=== PATIENT | male | born 1970 | race Caucasian/White ===

== ENCOUNTER → 2016-12-08 | Outpatient (CLI) | payer BC ==
[~2016-12-08] MED LIST: BLOOD PRESSURE; GLUCOPHAGE500 MG PO; MOTRIN800 MG PO; TRICOR54 MG PO
[2016-12-08 12:02] LABS: BASO % 0.3 % (0.0-1.0); EOS # 0.1 10*3/uL (0.0-0.4); EOS % 0.9 % (1.0-4.0); HEMOGLOBIN 17.7 g/dl (14.0-18.0); LYMPH # 1.4 10*3/uL (1.3-4.4); LYMPH % 21.7 % (27.0-41.0); MEAN CELL VOLUME 89.8 fl (80.0-94.0); MEAN CORPUSCULAR HGB 31.8 pg (27.0-31.0); MEAN CORPUSCULAR HGB CONC 35.4 g/dl (33.0-37.0); MEAN PLATELET VOLUME 11.3 fl (9.6-12.3); MONO # 0.6 10*3/uL (0.1-1.0); MONO % 8.8 % (3.0-9.0); NEUT # 4.4 10*3/uL (2.3-7.9); PLATELET COUNT AUTOMATED 152 10*3/uL (130-400); RED BLOOD COUNT 5.57 10*6/uL (4.50-5.90); RED CELL DISTRI WIDTH 12.6 % (0-14.5); WHITE BLOOD COUNT 6.5 10*3/uL (4.8-10.8)
[2016-12-08 12:21] LABS: IRON 79 ug/dL (65-175); IRON SATURATION 21 %; UIBC 289 ug/dL (110-410)
[2016-12-09 19:05] LABS: LEUKOCYTE ALK PHOSPHATASE 84 (25-130)
== END | disposition home or self-care (01) ==
LOC: LAB 11:19
PROVIDERS: Internal Medicine Hematology & Oncology
DX: D75.1 Secondary polycythemia (principal)

== ENCOUNTER → 2017-05-18 | Outpatient (CLI) | payer BC ==
[2017-05-18 05:58] LABS: BASO % 0.3 % (0.0-1.0); EOS # 0.1 10*3/uL (0.0-0.4); EOS % 1.2 % (1.0-4.0); HEMATOCRIT 45.1 % (42.0-52.0); HEMOGLOBIN 15.9 g/dl (14.0-18.0); LYMPH # 1.8 10*3/uL (1.3-4.4); LYMPH % 28.1 % (27.0-41.0); MEAN CELL VOLUME 90.4 fl (80.0-94.0); MEAN CORPUSCULAR HGB 31.9 pg (27.0-31.0); MEAN CORPUSCULAR HGB CONC 35.3 g/dl (33.0-37.0); MEAN PLATELET VOLUME 11.5 fl (9.6-12.3); MONO # 0.7 10*3/uL (0.1-1.0); MONO % 10.1 % (3.0-9.0); NEUT # 3.8 10*3/uL (2.3-7.9); PLATELET COUNT AUTOMATED 141 10*3/uL (130-400); RED BLOOD COUNT 4.99 10*6/uL (4.50-5.90); RED CELL DISTRI WIDTH 12.7 % (0-14.5); WHITE BLOOD COUNT 6.4 10*3/uL (4.8-10.8)
[2017-05-18 06:07] LABS: BILIRUBIN NEGATIVE (NEGATIVE); BLOOD NEGATIVE (NEGATIVE); CLARITY CLEAR (CLEAR); COLOR YELLOW (YELLOW); GLUCOSE 3+ (NEGATIVE); KETONE NEGATIVE (NEGATIVE); LEUKO ESTERASE NEGATIVE (NEGATIVE); NITRITE NEGATIVE (NEGATIVE); PH 5.5 (5.0-9.0); SPECIFIC GRAVITY 1.025 (1.005-1.030); UROBILINOGEN 0.2 E.U./dl (0.2-1.0)
[2017-05-18 06:33] LABS: ALBUMIN 3.5 gm/dl (3.1-4.5); BUN 13 mg/dl (7-24); CHLORIDE 103 mmol/L (98-107); CHOLESTEROL 204 mg/dL (<200); GAMMA GLUTAMYL TRANSPEPTIDASE 58 U/L (15-85); POTASSIUM 3.5 mmol/L (3.5-5.1); SGOT/AST 23 IU/L (3-35); SODIUM 136 mmol/L (136-145); TRIGLYCERIDES 500 mg/dl (<150)
[2017-05-18 06:40] LABS: ALKALINE PHOSPHATASE 113 U/L (45-117); CPK 126 U/L (39-308); CREATININE 0.94 mg/dL (0.70-1.30); HDL CHOLESTEROL 33 mg/dl (40-60); SGPT/ALT 46 U/L (12-78); TOTAL PROTEIN 6.9 gm/dL (6.4-8.2)
[2017-05-18 11:04] LABS: FERRITIN 376.8 ng/mL (22.0-322.0); VITAMIN D, 25-HYDROXY 13.4 ng/mL (30-100)
== END | disposition home or self-care (01) ==
LOC: LAB 05:06
PROVIDERS: Family Medicine
DX: R79.89 Other specified abnormal findings of blood chemistry (principal); R53.83 Other fatigue; E55.9 Vitamin D deficiency, unspecified

== ENCOUNTER → 2021-01-31 | Outpatient (CLI) | payer OTHER ==
[2021-01-31 07:39] LABS: BILIRUBIN Negative (Negative); BLOOD Negative (Negative); CLARITY Clear (Clear); COLOR Yellow (Yellow); GLUCOSE 3+ (Negative); KETONE Negative (Negative); LEUKO ESTERASE Negative (Negative); NITRITE Negative (Negative); SPECIFIC GRAVITY >= 1.030 (1.001-1.030)
[2021-01-31 07:40] LABS: BASO % 0.2 % (0.0-1.0); EOS # 0.1 10*3/uL (0.0-0.4); EOS % 1.2 % (1.0-4.0); HEMATOCRIT 43.2 % (42.0-52.0); LYMPH # 1.2 10*3/uL (1.3-4.4); LYMPH % 23.5 % (27.0-41.0); MEAN CORPUSCULAR HGB 31.5 pg (27.0-31.0); MEAN PLATELET VOLUME 10.5 fl (9.6-12.3); MONO # 0.6 10*3/uL (0.1-1.0); MONO % 11.4 % (3.0-9.0); NEUT # 3.1 10*3/uL (2.3-7.9); NEUT % 63.3 % (47.0-73.0); PLATELET COUNT AUTOMATED 191 10*3/uL (130-400); RED CELL DISTRI WIDTH 12.4 % (0-14.5); RETICULOCYTE % 2.46 % (0.50-2.50); WHITE BLOOD COUNT 4.9 10*3/uL (4.8-10.8)
[2021-01-31 08:10] LABS: ALBUMIN 3.7 gm/dl (3.1-4.5); BUN 14 mg/dl (7-24); CHLORIDE 104 mmol/L (98-107); CHOLESTEROL 159 mg/dL (<200); CREATININE 0.91 mg/dL (0.70-1.30); GAMMA GLUTAMYL TRANSPEPTIDASE 23 U/L (15-85); IRON 93 ug/dL (65-175); LDL CHOLESTEROL 97 mg/dL (9-159); POTASSIUM 3.8 mmol/L (3.5-5.1); SGOT/AST 16 IU/L (3-35); SGPT/ALT 42 U/L (12-78); SODIUM 134 mmol/L (136-145); TOTAL IRON BINDING CAPACITY 321 ug/dl (250-450); TRIGLYCERIDES 150 mg/dl (<150)
[2021-01-31 08:17] LABS: ALKALINE PHOSPHATASE 121 U/L (45-117); CPK 165 U/L (39-308); THYROID STIM HORMONE (HS) 0.839 uIU/ml (0.358-4.75); TOTAL PROTEIN 7.3 gm/dL (6.4-8.2)
[2021-01-31 08:40] LABS: FERRITIN 456.6 ng/mL (22.0-322.0); VITAMIN D, 25-HYDROXY 22.2 ng/mL (30-100)
[2021-01-31 09:58] LABS: BACTERIA TRACE; MUCOUS 2+
== END | disposition home or self-care (01) ==
LOC: LAB 07:07
PROVIDERS: ATTEND Family Medicine
DX: E10.9 Type 1 diabetes mellitus without complications (principal); E78.5 Hyperlipidemia, unspecified; E55.9 Vitamin D deficiency, unspecified; R53.83 Other fatigue; R79.89 Other specified abnormal findings of blood chemistry

== ENCOUNTER 2021-02-11 11:03 | Emergency (ER) | payer OTHER ==
[~2021-02-11] VITALS: Ht 172.7 cm; Wt 87.5 kg
[2021-02-11 11:07] VITALS: BP 145/93
== END 2021-02-11 13:51 | disposition home or self-care (01) ==
LOC: ED 11:03
DX: S89.91XA Unspecified injury of right lower leg, initial encounter (principal); Z90.49 Acquired absence of other specified parts of digestive tract; Z79.899 Other long term (current) drug therapy; X50.1XXA Overexertion from prolonged static or awkward postures, initial encounter; Y93.01 Activity, walking, marching and hiking; Y92.238 Other place in hospital as the place of occurrence of the external cause; Y99.9 Unspecified external cause status

== ENCOUNTER → 2021-02-28 | Outpatient (CLI) | payer OTHER | END | disposition home or self-care (01) | LOC: MRI 07:38 | PROVIDERS: ATTEND Family Medicine | DX: S83.241A Other tear of medial meniscus, current injury, right knee, initial encounter (principal); M25.461 Effusion, right knee; M22.2X1 Patellofemoral disorders, right knee; X58.XXXA Exposure to other specified factors, initial encounter; Y93.89 Activity, other specified; Y92.89 Other specified places as the place of occurrence of the external cause; Y99.8 Other external cause status ==

== ENCOUNTER 2021-07-08 11:20 | Emergency (ER) | payer OTHER ==
[~2021-07-08] VITALS: Wt 83.5 kg
[2021-07-08 11:31] VITALS: BP 165/90
[2021-07-08 11:42] LABS: BASO % 0.2 % (0.0-1.0); EOS % 0.1 % (1.0-4.0); HEMATOCRIT 48.7 % (42.0-52.0); LYMPH % 9.8 % (27.0-41.0); MEAN CELL VOLUME 89.5 fl (80.0-94.0); MEAN CORPUSCULAR HGB 31.6 pg (27.0-31.0); MEAN CORPUSCULAR HGB CONC 35.3 g/dl (33.0-37.0); MEAN PLATELET VOLUME 10.8 fl (9.6-12.3); MONO # 0.5 10*3/uL (0.1-1.0); MONO % 4.9 % (3.0-9.0); NEUT # 8.9 10*3/uL (2.3-7.9); NEUT % 84.6 % (47.0-73.0); PLATELET COUNT AUTOMATED 225 10*3/uL (130-400); RED BLOOD COUNT 5.44 10*6/uL (4.50-5.90); RED CELL DISTRI WIDTH 11.9 % (0-14.5); WHITE BLOOD COUNT 10.6 10*3/uL (4.8-10.8)
[2021-07-08 11:53] LABS: ACT PARTIAL THROMBO TIME 23.1 SECONDS (20.0-32.1); INTERNATIONAL NORM RATIO 1.1 (2.0-3.5)
[2021-07-08 11:54] LABS: SODIUM 131 mmol/L (136-145)
[2021-07-08 12:10] LABS: ALBUMIN 4.4 gm/dl (3.1-4.5); ALKALINE PHOSPHATASE 88 U/L (45-117); BUN 19 mg/dl (7-24); CHLORIDE 97 mmol/L (98-107); CREATININE 1.17 mg/dL (0.70-1.30); POTASSIUM 4.2 mmol/L (3.5-5.1); SGOT/AST 20 IU/L (3-35); SGPT/ALT 31 U/L (12-78); TOTAL PROTEIN 8.2 gm/dL (6.4-8.2)
[2021-07-08 12:12] LABS: TROPONIN I < 0.015 ng/ml (<0.045)
[2021-07-08] MEDS ORDERED: ZOFRAN4 MG PO (17:39)
[2021-07-08] MEDS ORDERED: VIBRAMYCIN HYC100 MG PO (17:41)
== END 2021-07-08 19:24 | disposition home or self-care (01) ==
LOC: ED 11:20
PROVIDERS: Internal Medicine
DX: J18.9 Pneumonia, unspecified organism (principal); I10 Essential (primary) hypertension; K21.9 Gastro-esophageal reflux disease without esophagitis; E78.5 Hyperlipidemia, unspecified; E10.9 Type 1 diabetes mellitus without complications; Z79.899 Other long term (current) drug therapy

== ENCOUNTER → 2021-07-09 | Outpatient (CLI) | payer OTHER ==
[~2021-07-09] MED LIST changes: +VIBRAMYCIN HYC100 MG PO; +ZOFRAN4 MG PO
== END | disposition home or self-care (01) ==
LOC: US 14:01
PROVIDERS: ATTEND Family Medicine
DX: K76.0 Fatty (change of) liver, not elsewhere classified (principal)

== ENCOUNTER → 2021-07-10 | Outpatient (CLI) | payer OTHER | END | disposition home or self-care (01) | LOC: CT 08:54 | PROVIDERS: ATTEND Family Medicine | DX: K76.0 Fatty (change of) liver, not elsewhere classified (principal); J21.9 Acute bronchiolitis, unspecified; R10.2 Pelvic and perineal pain ==

== ENCOUNTER → 2021-07-15 | Outpatient (CLI) | payer OTHER | END | disposition home or self-care (01) | LOC: NM 11:19 | PROVIDERS: ATTEND Family Medicine | DX: R10.84 Generalized abdominal pain (principal) ==

== ENCOUNTER 2021-09-04 08:21 | Emergency (ER) | payer OTHER ==
[~2021-09-04] VITALS: Ht 172.7 cm; Wt 86.2 kg
[2021-09-04 09:07] LABS: BASO % 0.2 % (0.0-1.0); EOS % 0.4 % (1.0-4.0); HEMATOCRIT 48.2 % (42.0-52.0); LYMPH % 20.2 % (27.0-41.0); MEAN CELL VOLUME 89.3 fl (80.0-94.0); MEAN CORPUSCULAR HGB 31.9 pg (27.0-31.0); MEAN CORPUSCULAR HGB CONC 35.7 g/dl (33.0-37.0); MEAN PLATELET VOLUME 10.2 fl (9.6-12.3); MONO # 0.5 10*3/uL (0.1-1.0); MONO % 9.5 % (3.0-9.0); NEUT # 3.6 10*3/uL (2.3-7.9); NEUT % 69.5 % (47.0-73.0); PLATELET COUNT AUTOMATED 194 10*3/uL (130-400); RED CELL DISTRI WIDTH 12.2 % (0-14.5); WHITE BLOOD COUNT 5.1 10*3/uL (4.8-10.8)
[2021-09-04 09:17] LABS: ACT PARTIAL THROMBO TIME 24.6 SECONDS (20.0-32.1); INTERNATIONAL NORM RATIO 1.1 (2.0-3.5)
[2021-09-04 09:21] LABS: ALBUMIN 4.4 gm/dl (3.1-4.5); ALKALINE PHOSPHATASE 90 U/L (45-117); BUN 12 mg/dl (7-24); CHLORIDE 100 mmol/L (98-107); CREATININE 0.99 mg/dL (0.70-1.30); LIPASE 101 U/L (73-393); POTASSIUM 3.5 mmol/L (3.5-5.1); SGOT/AST 24 IU/L (3-35); SGPT/ALT 59 U/L (12-78); SODIUM 134 mmol/L (136-145)
[2021-09-04 11:27] VITALS: BP 174/95
[2021-09-04 11:30] LABS: BILIRUBIN Negative (Negative); BLOOD Negative (Negative); CLARITY Clear (Clear); COLOR Dark Yellow (Yellow); GLUCOSE 3+ (Negative); KETONE 3+ (Negative); LEUKO ESTERASE Negative (Negative); NITRITE Negative (Negative); SPECIFIC GRAVITY >= 1.030 (1.001-1.030)
[2021-09-04 12:02] LABS: BACTERIA TRACE; EPITHELIAL CELLS 0-2; MUCOUS 3+
[2021-09-04] MEDS ORDERED: MAALOX ADVANCE355 M1 PO (15:57)
[2021-09-04] MEDS ORDERED: ZOFRAN4 MG PO (15:57)
== END 2021-09-04 16:10 | disposition home or self-care (01) ==
LOC: ED 08:21
PROVIDERS: Emergency Medicine
DX: E11.65 Type 2 diabetes mellitus with hyperglycemia (principal); Z20.822 Contact with and (suspected) exposure to COVID-19; R10.13 Epigastric pain; R11.2 Nausea with vomiting, unspecified; Z79.899 Other long term (current) drug therapy; Z79.2 Long term (current) use of antibiotics; Z98.890 Other specified postprocedural states; Z90.49 Acquired absence of other specified parts of digestive tract

== ENCOUNTER → 2021-09-09 | Outpatient (CLI) | payer OTHER ==
[~2021-09-09] MED LIST changes: +MAALOX ADVANCE355 M1 PO
== END | disposition home or self-care (01) ==
LOC: NM 09-04 07:32
PROVIDERS: ATTEND Family Medicine
DX: R10.84 Generalized abdominal pain (principal)

== ENCOUNTER → 2022-08-17 | Outpatient (CLI) | payer OTHER ==
[2022-08-17 07:31] LABS: BASO % 0.3 % (0.0-1.0); EOS # 0.1 10*3/uL (0.0-0.4); EOS % 0.8 % (1.0-4.0); LYMPH # 1.3 10*3/uL (1.3-4.4); LYMPH % 20.8 % (27.0-41.0); MEAN CELL VOLUME 92.8 fl (80.0-94.0); MEAN CORPUSCULAR HGB 32.2 pg (27.0-31.0); MEAN CORPUSCULAR HGB CONC 34.7 g/dl (33.0-37.0); MEAN PLATELET VOLUME 10.9 fl (9.6-12.3); MONO # 0.6 10*3/uL (0.1-1.0); MONO % 9.4 % (3.0-9.0); NEUT # 4.4 10*3/uL (2.3-7.9); NEUT % 68.2 % (47.0-73.0); PLATELET COUNT AUTOMATED 157 10*3/uL (130-400); RED BLOOD COUNT 5.28 10*6/uL (4.50-5.90); RED CELL DISTRI WIDTH 12.1 % (0-14.5); RETICULOCYTE % 2.39 % (0.50-2.50); WHITE BLOOD COUNT 6.4 10*3/uL (4.8-10.8)
[2022-08-17 07:55] LABS: ALKALINE PHOSPHATASE 107 U/L (46-116); BUN 10 mg/dl (9-23); CHLORIDE 99 mmol/L (98-107); CHOLESTEROL 203 mg/dL (<200); CREATININE 0.92 mg/dL (0.70-1.30); GAMMA GLUTAMYL TRANSPEPTIDASE 33 U/L (0-73); LDL CHOLESTEROL 96 mg/dL (9-159); POTASSIUM 4.3 mmol/L (3.4-5.1); SGPT/ALT 50 U/L (10-49); SODIUM 134 mmol/L (136-145); THYROID STIM HORMONE (HS) 1.553 uIU/ml (0.550-4.780); TOTAL PROTEIN 6.9 gm/dL (6.0-8.0); TRIGLYCERIDES 360 mg/dl (<150)
[2022-08-17 10:30] LABS: CLARITY Clear (Clear); COLOR Yellow (Yellow); GLUCOSE 3+ (Negative)
[2022-08-17 10:31] LABS: BILIRUBIN 1+ (Negative); BLOOD Negative (Negative); KETONE Negative (Negative); SPECIFIC GRAVITY 1.025 (1.001-1.030)
[2022-08-17 10:33] LABS: BACTERIA TRACE; LEUKO ESTERASE Negative (Negative); MUCOUS TRACE; NITRITE Negative (Negative); RBC 0-2 rbc/hpf (0-2); UROBILINOGEN 0.2 E.U./dl (0.0-1.0)
== END | disposition home or self-care (01) ==
LOC: LAB 07:06
PROVIDERS: ATTEND Family Medicine
DX: E78.5 Hyperlipidemia, unspecified (principal); E55.9 Vitamin D deficiency, unspecified; R79.89 Other specified abnormal findings of blood chemistry; R53.83 Other fatigue; R74.8 Abnormal levels of other serum enzymes

== ENCOUNTER → 2023-01-18 | Outpatient (CLI) | payer OTHER ==
[2023-01-18 08:23] LABS: BASO % 0.3 % (0.0-1.0); EOS # 0.1 10*3/uL (0.0-0.4); EOS % 1.5 % (1.0-4.0); HEMATOCRIT 48.3 % (42.0-52.0); LYMPH # 2.1 10*3/uL (1.3-4.4); LYMPH % 34.6 % (27.0-41.0); MEAN CELL VOLUME 93.2 fl (80.0-94.0); MEAN CORPUSCULAR HGB CONC 34.4 g/dl (33.0-37.0); MONO # 0.6 10*3/uL (0.1-1.0); MONO % 9.2 % (3.0-9.0); NEUT # 3.2 10*3/uL (2.3-7.9); NEUT % 54.1 % (47.0-73.0); PLATELET COUNT AUTOMATED 162 10*3/uL (130-400); RED BLOOD COUNT 5.18 10*6/uL (4.50-5.90); RED CELL DISTRI WIDTH 11.9 % (0-14.5); RETICULOCYTE % 2.03 % (0.50-2.50)
[2023-01-18 08:29] LABS: BILIRUBIN Negative (Negative); BLOOD Negative (Negative); CLARITY Clear (Clear); COLOR Yellow (Yellow); GLUCOSE 2+ (Negative); KETONE Trace (Negative); LEUKO ESTERASE Negative (Negative); NITRITE Negative (Negative); PH 5.5 (4.5-8.0); SPECIFIC GRAVITY 1.025 (1.001-1.030)
[2023-01-18 09:31] LABS: ALKALINE PHOSPHATASE 117 U/L (46-116); BUN 11 mg/dl (9-23); CHLORIDE 101 mmol/L (98-107); CHOLESTEROL 155 mg/dL (<200); GAMMA GLUTAMYL TRANSPEPTIDASE 19 U/L (0-73); LDL CHOLESTEROL 92 mg/dL (9-159); POTASSIUM 3.7 mmol/L (3.4-5.1); SGPT/ALT 40 U/L (10-49); T3 UPTAKE 25.4 % (22.4-36.7); THYROID STIM HORMONE (HS) 1.704 uIU/ml (0.550-4.780); THYROXINE (T4) TOTAL 6.7 ug/dl (4.5-10.9); TOTAL PROTEIN 7.1 gm/dL (6.0-8.0); TRIGLYCERIDES 129 mg/dl (<150)
[2023-01-18 10:12] LABS: MUCOUS 2+
== END | disposition home or self-care (01) ==
LOC: LAB 08:03
PROVIDERS: ATTEND Family Medicine
DX: E78.5 Hyperlipidemia, unspecified (principal); E55.9 Vitamin D deficiency, unspecified; R79.89 Other specified abnormal findings of blood chemistry; R74.8 Abnormal levels of other serum enzymes; R53.83 Other fatigue

== ENCOUNTER 2024-06-17 17:24 | Inpatient (IN) | payer OTHER ==
[~2024-06-17] VITALS: Ht 172.7 cm; Wt 89.4 kg
[2024-06-17 20:18] VITALS: BP 163/95
[2024-06-17] MEDS ORDERED: Pantoprazole Sodium 40 MG VIAL IV ONE (21:10)
[2024-06-17] MEDS ORDERED: Ondansetron Hydrochloride 4 MG/2 ML VIAL IV ONE (21:10)
[2024-06-17] MEDS ORDERED: SODIUM CHLORIDE 0.9% 1,000 ML IV ONE (21:10)
[2024-06-17 21:32] LABS: BILIRUBIN Negative (Negative); BLOOD Negative (Negative); CLARITY Clear (Clear); COLOR Yellow (Yellow); GLUCOSE 3+ (Negative); KETONE 2+ (Negative); LEUKO ESTERASE Negative (Negative); NITRITE Negative (Negative); PH 5.5 (4.5-8.0); SPECIFIC GRAVITY >= 1.030 (1.001-1.030)
[2024-06-17] MEDS ORDERED: Water, Sterile 10 ML VIAL ONE (21:34)
[2024-06-17 21:52] LABS: EPITHELIAL CELLS 0-2; MUCOUS TRACE; WBC 0-2 wbc/hpf (0-5); YEAST TRACE
[2024-06-17 22:12] LABS: HEMATOCRIT 49.1 % (42.0-52.0); MEAN CORPUSCULAR HGB 32.2 pg (27.0-31.0); MEAN CORPUSCULAR HGB CONC 34.6 g/dl (33.0-37.0); MEAN PLATELET VOLUME 11.4 fl (9.6-12.3); PLATELET COUNT AUTOMATED 192 10*3/uL (130-400); RED BLOOD COUNT 5.28 10*6/uL (4.50-5.90); RED CELL DISTRI WIDTH 12.1 % (0-14.5); WHITE BLOOD COUNT 11.3 10*3/uL (4.8-10.8)
[2024-06-17 22:14] LABS: MANUAL DIFF REFLEX YES
[2024-06-17 22:32] LABS: PLATELET SUFFICIENCY NORMAL (NORMAL); TOTAL CELLS COUNTED 100 #CELLS
[2024-06-17 22:33] LABS: ALKALINE PHOSPHATASE 98 U/L (46-116); BUN 11 mg/dl (9-23); CHLORIDE 96 mmol/L (98-107); LIPASE 31 U/L (12-53); POTASSIUM 4.2 mmol/L (3.4-5.1); SGPT/ALT 38 U/L (5-49)
[2024-06-17] MEDS ORDERED: SODIUM CHLORIDE 0.9% 1,000 ML IV SCH (23:05)
[2024-06-17] MEDS ORDERED: Ketorolac Tromethamine 15 MG/ML VIAL IV ONE (23:10)
[2024-06-17] MEDS ORDERED: SODIUM CHLORIDE 0.9% 2,000 ML IV ONE (23:19)
[2024-06-17] MEDS ORDERED: Promethazine Hydrochloride 25 MG/ML VIAL IM ONE (23:35)
[2024-06-17] MEDS ORDERED: MEPERIDINE HYDROCHLORIDE 25 MG/1 ML VIAL IV ONE (23:55)
[2024-06-18] MEDS ORDERED: Ondansetron Hydrochloride 4 MG/2 ML VIAL IV PRN (00:15)
[2024-06-18] MEDS ORDERED: Acetaminophen/Hydrocodone 5 MG/325 MG TABLET PO PRN (00:15)
[2024-06-18] MEDS ORDERED: DEXTROSE 10 % IN WATER 250 ML IV PRN (00:15)
[2024-06-18] MEDS ORDERED: BISACODYL 5 MG TAB PO PRN (00:15)
[2024-06-18] MEDS ORDERED: MORPHINE Sulfate 2 MG/ML SYR IV PRN (00:15)
[2024-06-18] MEDS ORDERED: IOHEXOL 300 MG/ML 100 ML VIAL IV ONE (00:25)
[2024-06-18] MEDS ORDERED: IOHEXOL 300 MG/ML 100 ML VIAL ONE (00:45)
[2024-06-18] MEDS ORDERED: LISINOPRIL5 MG PO (01:09)
[2024-06-18] MEDS ORDERED: FAMOTIDINE40 MG PO (01:10)
[2024-06-18] MEDS ORDERED: ATORVASTATIN CA40 M1 PO (01:11)
[2024-06-18] MEDS ORDERED: GEMFIBROZIL600 MG PO (01:11)
[2024-06-18] MEDS ORDERED: ATORVASTATIN CA20 M1 PO (01:11)
[2024-06-18] MEDS ORDERED: TOUJEO SOL300 UNIT/1 SQ (01:13)
[2024-06-18 05:33] VITALS: BP 104/83
[2024-06-18] MEDS ORDERED: INSULIN LISPRO 1 UNIT/0.01 ML SQ SCH (07:30)
[2024-06-18] MEDS ORDERED: ERYTHROMYCIN 250 MG PO SCH (08:00)
[2024-06-18] MEDS ORDERED: Enoxaparin Sodium 40 MG/0.4 ML SYR SC SCH (10:00)
[2024-06-18 14:30] VITALS: BP 147/90
[2024-06-18] MEDS ORDERED: LEVEMIR100 UNIT/1 SC (15:31)
[2024-06-18] MEDS ORDERED: VITAMIN D310 MC3 PO (15:32)
[2024-06-18 16:00] VITALS: BP 147/90
[2024-06-18] MEDS ORDERED: Metoclopramide Hydrochloride 5 MG TAB PO SCH (18:00)
[2024-06-18 20:00] VITALS: BP 138/91
[2024-06-19] VITALS: BP 136/75
[2024-06-19 04:14] LABS: BASO % 0.2 % (0.0-1.0); EOS # 0.1 10*3/uL (0.0-0.4); EOS % 0.9 % (1.0-4.0); HEMATOCRIT 40.6 % (42.0-52.0); LYMPH % 35.2 % (27.0-41.0); MEAN CELL VOLUME 93.5 fl (80.0-94.0); MEAN CORPUSCULAR HGB 31.8 pg (27.0-31.0); MEAN PLATELET VOLUME 11.2 fl (9.6-12.3); MONO # 0.5 10*3/uL (0.1-1.0); MONO % 7.9 % (3.0-9.0); NEUT # 3.2 10*3/uL (2.3-7.9); NEUT % 55.6 % (47.0-73.0); PLATELET COUNT AUTOMATED 139 10*3/uL (130-400); RED BLOOD COUNT 4.34 10*6/uL (4.50-5.90); RED CELL DISTRI WIDTH 12.2 % (0-14.5); WHITE BLOOD COUNT 5.8 10*3/uL (4.8-10.8)
[2024-06-19 04:30] LABS: BUN 9 mg/dl (9-23); CHLORIDE 102 mmol/L (98-107); POTASSIUM 3.4 mmol/L (3.4-5.1)
[2024-06-19 08:00] VITALS: BP 159/89
[2024-06-19] MEDS ORDERED: METOCLOPRAMIDE H5 M1 PO (11:58)
[2024-06-19 12:00] VITALS: BP 133/77
[2024-06-19] MEDS ORDERED: ERYTHROMYCIN 250 MG TAB PO SCH (12:00)
== END 2024-06-19 12:50 | disposition home or self-care (01) | DRG 74 ==
LOC: ED 17:24 → 4E 06-18 00:06 → EDHOLD 06-18 00:06 → 4E 06-18 13:51
PROVIDERS: Emergency Medicine; Internal Medicine; ADMIT Student in an Organized Health Care Education/Training Program; ATTEND Student in an Organized Health Care Education/Training Program
DX: E10.43 Type 1 diabetes mellitus with diabetic autonomic (poly)neuropathy (principal); E87.1 Hypo-osmolality and hyponatremia; E87.20 Acidosis, unspecified; K31.84 Gastroparesis; E10.65 Type 1 diabetes mellitus with hyperglycemia; E87.8 Other disorders of electrolyte and fluid balance, not elsewhere classified; I10 Essential (primary) hypertension; E78.5 Hyperlipidemia, unspecified; Z79.899 Other long term (current) drug therapy; Z90.49 Acquired absence of other specified parts of digestive tract

== ENCOUNTER → 2025-01-04 | Outpatient (CLI) | payer OTHER ==
[~2025-01-04] MED LIST changes: +ATORVASTATIN CA20 M1 PO; +ATORVASTATIN CA40 M1 PO; +FAMOTIDINE40 MG PO; +GEMFIBROZIL600 MG PO; +LEVEMIR100 UNIT/1 SC; +LISINOPRIL5 MG PO; +METOCLOPRAMIDE H5 M1 PO; +TOUJEO SOL300 UNIT/1 SQ; +VITAMIN D310 MC3 PO
[2025-01-04 09:31] LABS: BASO % 0.4 % (0.0-1.0); BILIRUBIN Negative (Negative); BLOOD Negative (Negative); CLARITY Cloudy (Clear); COLOR Yellow (Yellow); EOS # 0.1 10*3/uL (0.0-0.4); EOS % 1.2 % (1.0-4.0); GLUCOSE 3+ (Negative); KETONE Negative (Negative); LEUKO ESTERASE Negative (Negative); MEAN CELL VOLUME 92.9 fl (80.0-94.0); MEAN CORPUSCULAR HGB 32.1 pg (27.0-31.0); MEAN CORPUSCULAR HGB CONC 34.6 g/dl (33.0-37.0); MONO # 0.5 10*3/uL (0.1-1.0); MONO % 10.1 % (3.0-9.0); NEUT # 3.2 10*3/uL (2.3-7.9); NEUT % 61.8 % (47.0-73.0); NITRITE Negative (Negative); PLATELET COUNT AUTOMATED 156 10*3/uL (130-400); RED BLOOD COUNT 4.95 10*6/uL (4.50-5.90); RED CELL DISTRI WIDTH 12.2 % (0-14.5); RETICULOCYTE % 2.14 % (0.50-2.50); SPECIFIC GRAVITY >= 1.030 (1.001-1.030); WHITE BLOOD COUNT 5.1 10*3/uL (4.8-10.8)
[2025-01-04 10:23] LABS: ALKALINE PHOSPHATASE 84 U/L (46-116); BUN 15 mg/dl (9-23); CHLORIDE 102 mmol/L (98-107); CHOLESTEROL 161 mg/dL (<200); GAMMA GLUTAMYL TRANSPEPTIDASE 19 U/L (0-73); LDL CHOLESTEROL 100 mg/dL (9-159); POTASSIUM 3.9 mmol/L (3.4-5.1); SGPT/ALT 40 U/L (5-49); T3 UPTAKE 30.4 % (22.4-36.7); THYROXINE (T4) TOTAL 5.7 ug/dl (4.5-10.9); TOTAL PROTEIN 7.2 gm/dL (6.0-8.0); TRIGLYCERIDES 131 mg/dl (<150)
[2025-01-04 11:19] LABS: VITAMIN D, 25-HYDROXY 26.2 ng/mL (30-100)
[2025-01-04 11:26] LABS: EPITHELIAL CELLS 0-2; MUCOUS 1+; RBC 0-2 rbc/hpf (0-2); WBC 0-2 wbc/hpf (0-5)
== END | disposition home or self-care (01) ==
LOC: LAB 09:02
PROVIDERS: ATTEND Family Medicine
DX: R79.89 Other specified abnormal findings of blood chemistry (principal); R53.83 Other fatigue; E78.5 Hyperlipidemia, unspecified; E59 Dietary selenium deficiency